=== PATIENT | female | born 1940 | race Caucasian/White ===

== ENCOUNTER 2022-07-19 17:23 | Emergency (ER) | payer OTHER ==
[~2022-07-19] VITALS: Ht 152.4 cm; Wt 38.6 kg
[2022-07-19 17:33] VITALS: BP_SYST 104
--- NOTE | 2022-07-19 19:03 | NUR ---
URINE SPECIMEN COLLECTED DELIVERED TO LAB
[2022-07-19 19:12] LABS: BILIRUBIN,URINE 1+ (NEGATIVE); BLOOD, URINE 2+ (NEGATIVE); CLARITY/URINE CLOUDY (CLEAR); COLOR,URINE ORANGE (YELLOW); GLUCOSE,URINE 1+ (NEGATIVE); KETONES,URINE TRACE (NEGATIVE); LEUKOCYTE ESTERASE ,URINE 3+ (NEGATIVE); NITRITE, URINE POSITIVE (NEGATIVE); PH,URINE 6.5 (5.0-8.0); PROTEIN URINE 3+ (NEGATIVE)
--- NOTE | 2022-07-19 19:34 | NUR ---
Dr. Rhodes in triage room examining the patient.
[2022-07-19 19:40] LABS: BACTERIA,URINE MODERATE /HPF (None Seen); WBC,URINE >100 /HPF (0-3)
--- NOTE | 2022-07-19 20:10 | NUR ---
Patient placed in ER BED 4 for evaluation. Bed in lowest position with siderails up. ACCOMPANIED BY DAUGHTER. Instructed to notify ED staff for any changes in condition or worsening of symptoms. Patient verbalized understanding.
[2022-07-19 20:15] LABS: BASOPHILS # (AUTO) 0.1 K/uL (0.0-0.2); BASOPHILS % (AUTO) 0.6 % (0.0-2.0); EOSINOPHILS # (AUTO) 0.1 K/uL (0.0-0.4); EOSINOPHILS % (AUTO) 0.9 % (0.0-4.0); HEMOGLOBIN 14.6 g/dL (12.0-16.0); LYMPHOCYTES # (AUTO) 1.8 K/uL (1.0-5.5); LYMPHOCYTES % (AUTO) 14.2 % (20.5-51.5); MEAN CORPUSCULAR HEMOGLOBIN 27 pg (27-31); MEAN CORPUSCULAR HGB CONC 33 % (32-36); MEAN CORPUSCULAR VOLUME 84 fL (79.0-98.0); MONOCYTES # (AUTO) 0.7 K/uL (0.0-1.0); MONOCYTES % (AUTO) 5.8 % (1.7-9.3); NEUTROPHILS % (AUTO) 78.5 % (40.0-70.0); PLATELET COUNT (AUTO) 292 K/uL (130-430); RED BLOOD CELL COUNT(AUTO) 5.34 MIL/uL (4.2-6.2); RED CELL DISTRIBUTION WIDTH 16.4 % (9.0-15.0); WHITE BLOOD COUNT (AUTO) 12.7 K/uL (4.8-10.8)
[2022-07-19] MEDS ORDERED: NACL 0.9% 1,000 ML IV ONE (20:15)
[2022-07-19] MEDS ORDERED: KETOROLAC TROMETHAMINE 30 MG VIAL IVP ONE (20:15)
[2022-07-19] MEDS ORDERED: PIPERACILLIN/TAZO 3.375 GM in NS 50 ML IV ONE (20:15)
[2022-07-19 20:26] LABS: ALANINE AMINOTRANSFERASE 24 U/L (12-78); ANION GAP 7 (5-15); ASPARTATE AMINOTRANSFERASE 19 U/L (10-37); CALCIUM 9.1 mg/dL (8.4-11.0); CHLORIDE 102 mmol/L (98-107); CREATININE 0.92 mg/dL (0.55-1.30); GLUCOSE 125 mg/dL (70-99); TOTAL BILIRUBIN 0.4 mg/dL (0.0-1.0); UREA NITROGEN, BLOOD 17 mg/dL (8-21)
[2022-07-19] MEDS ORDERED: PIPERACILLIN/TAZOBACTAM 3.375 GM/VIAL (ZOSYN) IV ONE (20:32)
[2022-07-19 20:36] LABS: PROTHROMBIN TIME 10.1 SECS (9.5-12.5)
[2022-07-19] MEDS ORDERED: PHENAZOPYRIDINE HCL 100 MG TABLET PO ONE (21:30)
[2022-07-19] MEDS ORDERED: MORPHINE 2 MG/ML INJ. SYRINGE IVP ONE (21:30)
[2022-07-19] MEDS ORDERED: SULF1TAB48 PO (21:38)
[2022-07-19] MEDS ORDERED: IBUP-1969 PO (21:40)
[2022-07-19] MEDS ORDERED: CEPH-548 PO (21:40)
[2022-07-19] MEDS ORDERED: PHEN-890 PO (21:40)
[2022-07-19] MEDS ORDERED: OXYC-128 PO (21:40)
--- NOTE | 2022-07-19 22:06 | NUR ---
went over d/c paper work with daughter and patient
== END 2022-07-19 22:35 | disposition home or self-care (01) ==
LOC: SED 17:23
DX: N39.0 Urinary tract infection, site not specified (principal); N20.0 Calculus of kidney; J18.1 Lobar pneumonia, unspecified organism; K57.90 Diverticulosis of intestine, part unspecified, without perforation or abscess without bleeding; D23.9 Other benign neoplasm of skin, unspecified; R23.8 Other skin changes; Z79.899 Other long term (current) drug therapy
CPT/HCPCS: 99285; 74176; 96365; 96375; 80053; 81000; 85025; 85610; 85730; 87040; 87086; 36415; 76376; 83605; J1885; J2543; J2270